=== PATIENT | female | born 1985 | race Caucasian/White ===

== ENCOUNTER 2018-05-02 08:16 | Emergency (ER) | payer OTHER ==
[~2018-05-02] VITALS: Ht 162.6 cm; Wt 95.3 kg
[~2018-05-02 08:16] MED LIST: SULF1TAB35 PO
--- OUTSIDE RECORDS SUMMARY | 2018-05-02 08:38 | XMS REPORT ---
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 Age 18-39 CPT-4 58973 April 18, 2016 VENIPUNCT, ROUTINE* CPT-4 65582 April 18, 2016 Vital Signs Date/Time: April 18, 2016 Cardiac Monitoring Heart Rate 95 bpm Weight 207.2 lbs Height 64 in Hearing Comments:pass both P / L Blood Pressure Diastolic 68 mmHg Blood Pressure Systolic 118 mmHg Results No Known Results Summary Purpose [employer] Submission
--- OUTSIDE RECORDS SUMMARY | 2018-05-02 08:38 | XMS REPORT ---
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 Name Role Phone JACKLYN RICHARDS Unavailable PROBLEMS Unknown Problems ALLERGIES No Known Allergies ENCOUNTERS Encounter Location Date Diagnosis [facility] [id number], [place] [address] Dec, Lumbar back pain M54.5 [facility] [address] [id number], [place] [address] Aug, Acute left-sided low back pain without sciatica M54.5 and Urinary frequency R35.0 [facility] [address] [id number], [place] [address] Apr, Annual physical exam Z00.00 IMMUNIZATIONS No Known Immunizations SOCIAL HISTORY Never Assessed REASON FOR VISIT lower back pain- improves throughout the day JStrasserRN, Takes a muscle relaxer and antinflammatory every night- unable to recall the names PLAN OF CARE Activity Details Follow Up prn Reason: VITAL SIGNS Height 64 in 2018-01-02 Weight 219 lbs 2018-01-02 Temperature 97.6 degrees Fahrenheit 2018-01-02 Heart Rate 90 bpm 2018-01-02 Respiratory Rate 20 2018-01-02 BMI 37.59 kg/m2 2018-01-02 Blood pressure systolic 122 mmHg 2018-01-02 Blood pressure diastolic 80 mmHg 2018-01-02 MEDICATIONS Medication Instructions Dosage Frequency Start Date End Date Duration Status Tylenol with Codeine #3 300-30 MG Orally every 6 hrs 1 tablet as needed 6h Dec, Dec, 4 days Active PredniSONE 20 MG Orally Once a day 2 tablet 24h Dec, Dec, 5 days Active Ritalin LA 20 MG Orally Once a day 1 capsule in the morning 24h Not-Taking RESULTS No Results PROCEDURES No Known procedures INSTRUCTIONS MEDICATIONS ADMINISTERED No Known Medications MEDICAL (GENERAL) HISTORY Type Description Date Medical History ADD Surgical History Partial amputatuion of right pinky finger 2014
[2018-05-02] MEDS ORDERED: NS IV 1000 ML 1,000 ML IV ONE (08:41)
[2018-05-02] MEDS ORDERED: ASPIRIN 81 MG CHEW (CHILDREN'S ASA) PO ONE (08:45)
[2018-05-02 09:05] LABS: BASOPHILS % (AUTO) 1 % (0-10); EOSINOPHILS # (AUTO) 0.2 10^3/uL (0.0-0.3); EOSINOPHILS % (AUTO) 4 % (0-10); HEMATOCRIT 36 % (35-52); HEMOGLOBIN 12.2 G/DL (11.5-16.0); LYMPHOCYTES # (AUTO) 1.8 X 10^3 (1.0-4.0); LYMPHOCYTES % (AUTO) 37 % (12-44); MEAN CORPUSCULAR HEMOGLOBIN 32 PG (25-34); MEAN CORPUSCULAR HGB CONC 34 G/DL (32-36); MEAN CORPUSCULAR VOLUME 95 FL (80-99); MEAN PLATELET VOLUME 10.6 FL (7.4-10.4); MONOCYTES # (AUTO) 0.4 X 10^3 (0.0-1.0); MONOCYTES % (AUTO) 7 % (0-12); NEUTROPHILS # (AUTO) 2.5 X 10^3 (1.8-7.8); NEUTROPHILS % (AUTO) 52 % (42-75); PLATELET COUNT 246 10^3/uL (130-400); RED BLOOD COUNT 3.81 10^6/uL (4.35-5.85); RED CELL DISTRIBUTION WIDTH 12.1 % (10.0-14.5); WHITE BLOOD COUNT 4.8 10^3/uL (4.3-11.0)
[2018-05-02 09:22] LABS: PROTHROMBIN TIME PATIENT 13.3 SEC (12.2-14.7)
[2018-05-02 09:28] LABS: ALANINE AMINOTRANSFERASE 29 U/L (0-55); ALKALINE PHOSPHATASE 74 U/L (40-136); BILIRUBIN,TOTAL 0.3 MG/DL (0.1-1.0); BUN/CREATININE RATIO 18; CALCIUM 8.9 MG/DL (8.5-10.1); CARBON DIOXIDE 25 MMOL/L (21-32); CHLORIDE 108 MMOL/L (98-107); CREATININE SERUM 0.79 MG/DL (0.60-1.30); GFR ESTIMATED > 60; GLUCOSE 120 MG/DL (70-105); POTASSIUM 4.1 MMOL/L (3.6-5.0); SODIUM 140 MMOL/L (135-145); TOTAL PROTEIN 6.8 GM/DL (6.4-8.2)
--- NOTE | 2018-05-02 09:34 | Diagnostic Imaging Report ---
INDICATION: Heaviness in chest with shortness of air starting today.. TECHNIQUE: Single view chest 9:23 AM. CORRELATION STUDY: None FINDINGS: The heart size, mediastinal configuration and pulmonary vascularity are within normal limits. Minimal linear atelectasis and or scarring left lung base. Lung may otherwise clear. IMPRESSION: 1. Relatively negative appearing portable chest radiograph. Dictated by: Dictated on workstation # [id number]
[2018-05-02] MEDS ORDERED: VERA120C2 PO (10:58)
--- NOTE | 2018-05-02 10:58 | ED Cardiac General ---
History of Present Illness General Chief Complaint: Chest Pain Stated Complaint: CHEST HEAVINESS Nursing Triage Note: PT AMB TO ROOM #5 W/O DIFFICULTY. A&OX4. AT SIDE. CO CHEST PAIN/HEAVINESS. PT REPORTS SHE WAS AT WORK THIS AM WHEN HER CHEST BEGAN TO FEEL "HEAVY" AND DECIDED TO PRESENT TO ED. PT REPORTS HX OF PSVT AND HAS NOT SEEN HER HEART DR. IN 4 YEARS. DENIES DIZZINESS. REPORTS TINGLING IN HER CHEEKS NOTED ON DRIVE OVER TO ED. Source: patient Exam Limitations: no limitations History of Present Illness Date Seen by Provider: May 02, 2018 Time Seen by Provider: 08:21 Initial Comments This 32-year-old woman presents to emergency room with complaints of tachycardia and chest pressure that started around 07:30. She has a history of PSVT for which she had ablation therapy, she believes in 2011. She has had some brief episodes of tachycardia since then for which she has not sought attention. She presents to the emergency room today because she had associated chest pressure. She is feeling improved now. She reports her pain was up to 5/ 10 at one time but is now 2/10. Sinus tachycardia noted on the monitor. 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 She has had some mild shortness of breath. Patient reports she was previously on verapamil for rate control but no longer takes any cardiac medicines. 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 Allergies and Home Medications Allergies Coded Allergies: erythromycin base (Verified Allergy, Unknown, 07/12/16) Home Medications Sulfamethoxazole/Trimethoprim 1 Each Tablet, 1 EACH PO BID Prescribed by: AGNIESZKA BELL on 07/12/16 1714 Verapamil HCl 120 Mg Cap24h.pel, 120 MG PO DAILY Prescribed by: JAYCOB MONDRAGON on 05/02/18 1058 Patient Home Medication List Home Medication List Reviewed: Yes Review of Systems Constitutional: no symptoms reported EENTM: No Symptoms Reported Respiratory: See HPI Cardiovascular: See HPI Gastrointestinal: No Symptoms Reported Genitourinary: No Symptoms Reported Musculoskeletal: no symptoms reported Skin: no symptoms reported Psychiatric/Neurological: No Symptoms Reported Endocrine: No Symptoms Reported Hematologic/Lymphatic: No Symptoms Reported Past Ypqadha-Dyqmik-Mkelrt Hx Past Med/Social Hx: Reviewed and Corrections made Patient Social History Alcohol Use: Denies Use Recreational Drug Use: No Smoking Status: Never a Smoker 2nd Hand Smoke Exposure: No Recent Foreign Travel: No Contact w/Someone Who Travel: No Recent Infectious Disease Expo: No Recent Hopitalizations: No Physical Abuse: No Sexual Abuse: No Immunizations Up To Date Tetanus Booster (TDap): Less than 5yrs Seasonal Allergies Seasonal Allergies: No Past Medical History Surgeries: No Respiratory: No Cardiac: Yes (PSVT) High Cholesterol Neurological: No : No Genitourinary: No Gastrointestinal: No Musculoskeletal: No Endocrine: No HEENT: No Cancer: No Psychosocial: No Nursing Suicide Risk Score: 0 Integumentary: No Blood Disorders: No Physical Exam Vital Signs Vital Signs - First Documented 05/02/18 11:07 Pulse Ox 98 Capillary Refill : Less Than 3 Seconds Height, Weight, BMI Height: 5'4.00" Weight: 210lbs. oz. 95.123342km; BMI Method:Stated General Appearance: No Apparent Distress, WD/WN HEENT: PERRL/EOMI, Normal ENT Inspection Neck: Normal Inspection Respiratory: Lungs Clear, Normal Breath Sounds, No Accessory Muscle Use, No Respiratory Distress Cardiovascular: No Edema, No Murmur, Tachycardia (regular) Gastrointestinal: Normal Bowel Sounds, Non Tender, Soft Extremity: Normal Inspection, Non Tender, No Pedal Edema Neurologic/Psychiatric: Alert, Oriented x3, No Motor/Sensory Deficits, Normal Mood/Affect, batter scaler II-XII Norm as Tested Skin: Normal Color, Warm/Dry Progress/Results/Core Measures Results/Orders Lab Results Laboratory Tests Test 05/02/18 08:58 Range/Units White Blood Count 4.8 4.3-11.0 10^3/uL Red Blood Count 3.81 L 4.35-5.85 10^6/uL Hemoglobin 12.2 11.5-16.0 G/DL Hematocrit 36 35-52 % Mean Corpuscular Volume 95 80-99 FL Mean Corpuscular Hemoglobin 32 25-34 PG Mean Corpuscular Hemoglobin Concent 34 32-36 G/DL Red Cell Distribution Width 12.1 10.0-14.5 % Platelet Count 246 130-400 10^3/uL Mean Platelet Volume 10.6 H 7.4-10.4 FL Neutrophils (%) (Auto) 52 42-75 % Lymphocytes (%) (Auto) 37 12-44 % Monocytes (%) (Auto) 7 0-12 % Eosinophils (%) (Auto) 4 0-10 % Basophils (%) (Auto) 1 0-10 % Neutrophils # (Auto) 2.5 1.8-7.8 X 10^3 Lymphocytes # (Auto) 1.8 1.0-4.0 X 10^3 Monocytes # (Auto) 0.4 0.0-1.0 X 10^3 Eosinophils # (Auto) 0.2 0.0-0.3 10^3/uL Basophils # (Auto) 0.0 0.0-0.1 10^3/uL Prothrombin Time 13.3 12.2-14.7 SEC INR Comment 1.0 0.8-1.4 Activated Partial Thromboplast Time 34 24-35 SEC D-Dimer 0.36 0.00-0.49 UG/ML Sodium Level 140 135-145 MMOL/L Potassium Level 4.1 3.6-5.0 MMOL/L Chloride Level 108 H 98-107 MMOL/L Carbon Dioxide Level 25 21-32 MMOL/L Anion Gap 7 5-14 MMOL/L Blood Urea Nitrogen 14 7-18 MG/DL Creatinine 0.79 0.60-1.30 MG/DL Estimat Glomerular Filtration Rate > 60 BUN/Creatinine Ratio 18 Glucose Level 120 H 70-105 MG/DL Calcium Level 8.9 8.5-10.1 MG/DL Magnesium Level 2.0 1.8-2.4 MG/DL Total Bilirubin 0.3 0.1-1.0 MG/DL Aspartate Amino Transf (AST/SGOT) 18 5-34 U/L Alanine Aminotransferase (ALT/SGPT) 29 0-55 U/L Alkaline Phosphatase 74 40-136 U/L Myoglobin 21.0 10.0-92.0 NG/ML Troponin I < 0.30 <0.30 NG/ML Total Protein 6.8 6.4-8.2 GM/DL Albumin 4.0 3.2-4.5 GM/DL TSH [place] Testing 1.18 0.35-4.94 UIU/ML Serum Test, Qualitative NEGATIVE NEGATIVE My Orders Orders - JAYCOB GOMEZ MD Cbc With Automated Diff (05/02/18 08:40) Magnesium (05/02/18 08:40) Chest 1 View, Ap/Pa Only (05/02/18 08:40) Ekg Tracing (05/02/18 08:40) Cardiac Profile 1 (05/02/18 08:40) Comprehensive Metabolic Panel (05/02/18 08:40) Myoglobin Serum (05/02/18 08:40) Protime With Inr (05/02/18 08:40) Partial Thromboplastin Time (05/02/18 08:40) O2 (05/02/18 08:40) Monitor-Rhythm Ecg Trace Only (05/02/18 08:40) Lipid Panel (05/03/18 06:00) Aspirin Chewable Tablet (Baby Aspirin Ch (05/02/18 08:45) Saline Lock/Iv-Start (05/02/18 08:40) Fibrin Degradation Products (05/02/18 08:40) Hcg,Qualitative Serum (05/02/18 08:40) Thyroid Analyzer (05/02/18 08:41) Saline Lock/Iv-Start (05/02/18 08:41) Ns Iv 1000 Ml (Sodium Chloride 0.9%) (05/02/18 08:41) Medications Given in ED Current Medications Medications Dose Ordered Sig/Cammy Route Start Time Stop Time Status Last Admin Dose Admin Aspirin 324 mg ONCE ONCE PO 05/02/18 08:45 05/02/18 08:46 DC 05/02/18 08:57 324 MG Sodium Chloride 1,000 ml @ 0 mls/hr Q0M ONCE IV 05/02/18 08:41 05/02/18 08:42 DC 05/02/18 08:56 1,000 MLS/HR Vital Signs/I&O 05/02/18 05/02/18 05/02/18 08:17 08:17 11:07 Temp 97.8 97.8 Pulse 111 83 Resp 20 16 B/P (MAP) 133/98 (110) 129/88 (110) Pulse Ox 98 O2 Delivery Room Air Room Air Room Air O2 Flow Rate 0 0 Blood Pressure Mean: 110 Progress Progress Note : Progress Note Patient received a liter of IV fluid. Workup was relatively unremarkable. Heart rate did improve during the course of her ER stay. She demonstrated no arrhythmias beyond sinus tachycardia. Case was discussed with Dr. Grayson who will be happy to see her in outpatient follow-up. He recommended starting her on Toprol XL. Patient prefers verapamil as that is what she used in the past. Dr. Grayson is agreeable to that. Initial ECG Impression Date: May 02, 2018 Initial ECG Impression Time: 08:21 Initial ECG Rate: 105 Initial ECG Rhythm: S.Tach Comment Sinus tachycardia with no ST elevation or depression. No abnormal intervals or axis deviation. Diagnostic Imaging Diagonstic Imaging: Xray Plain Films/CT/US/NM/MRI: chest Comments Chest x-ray viewed by me and report reviewed. See report below: NAME: [facility] REC#: [id number] PT STATUS: REG ER : 1985 PHYSICIAN: JAYCOB GOMEZ MD ADMIT DATE: 05/02/18/ER Signed Date of Exam: 05/02/18 CHEST 1 VIEW, AP/PA ONLY INDICATION: Heaviness in chest with shortness of air starting today.. TECHNIQUE: Single view chest 9:23 AM. CORRELATION STUDY: None FINDINGS: The heart size, mediastinal configuration and pulmonary vascularity are within normal limits. Minimal linear atelectasis and or scarring left lung base. Lung may otherwise clear. IMPRESSION: 1. Relatively negative appearing portable chest radiograph. Dictated by: Dictated on workstation # [id number] Dict: 05/02/18930 Trans: 05/02/18931 Interpreted by: BETO QUINTANA DO Electronically signed by: BETO QUINTANA DO 05/02/18931 Departure Impression Primary Impression: Palpitations Additional Impressions: Sinus tachycardia History of paroxysmal supraventricular tachycardia Disposition: HOME, SELF-CARE Condition: Improved Departure-Patient Inst. Decision time for Depature: 10:40 Referrals: NO,LOCAL PHYSICIAN (PCP/Family) Primary Care Physician Patient Instructions: Sinus Tachycardia (DC), Supraventricular Tachycardia (SVT ) Add. Discharge Instructions: Stay well-hydrated with plenty of clear liquids. Start verapamil as prescribed. Contact to Dr. Grayson's office and make an appointment as soon as possible. Return to the ER if you have any other problems or concerns. All discharge instructions reviewed with patient and/or family. Voiced understanding. Scripts Verapamil HCl (Verapamil ER) 120 Mg Cap24h.pel 120 MG PO DAILY, #30 CAP Prov: JAYCOB GOMEZ MD 05/02/18 Copy Copies To 1: Kenton GRAYSON MD, JOSHUA T MD May 02, 2018 10:58
[2018-05-02 11:07] VITALS: BP 129/88
== END 2018-05-02 11:07 | disposition home or self-care (01) ==
LOC: EDUNIT# 08:16 → ER 08:18
DX: R00.2 Palpitations (principal); R00.0 Tachycardia, unspecified; E78.00 Pure hypercholesterolemia, unspecified; Z86.79 Personal history of other diseases of the circulatory system; Z88.0 Allergy status to penicillin
CPT/HCPCS: 36415; 71045; 80053; 83735; 83874; 84443; 84484; 84703; 85025; 85379; 85610; 85730; 93005; 93041; 96360

== ENCOUNTER → 2019-02-27 | Outpatient (REF) ==
[~2019-02-27] MED LIST changes: +VERA120C2 PO
--- NOTE | 2019-02-27 15:59 | Diagnostic Imaging Report ---
Indication: Left lower leg injury from a fall AP and lateral views of left tibia fibula show no fracture or dislocation. Impression: Negative left tibia fibula Dictated by: Dictated on workstation # [id number]
== END | disposition home or self-care (01) ==
LOC: RAD 15:24
PROVIDERS: ATTEND Nurse Practitioner Family
CPT/HCPCS: 73590

== ENCOUNTER 2021-06-19 11:52 | Emergency (ER) | payer OTHER ==
[~2021-06-19 11:52] MED LIST changes: -SULF1TAB35 PO; +SULF1TAB38 PO
== END 2021-06-19 12:10 | disposition left against medical advice (07) ==
LOC: EDUNIT# 11:52 → ER 11:54
DX: R07.9 Chest pain, unspecified (principal)